=== PATIENT | male | born 1995 | race African-American/Black ===

== ENCOUNTER 2018-10-18 07:47 | Emergency (ER) | payer OTHER ==
[~2018-10-18] VITALS: Wt 63.0 kg
[2018-10-18 07:49] VITALS: BP 108/65; PULSE 61; RESP 20
[2018-10-18] MEDS ORDERED: ONDANSETRON (ODT) 4 MG TAB ODT STA (08:21)
[2018-10-18] MEDS ORDERED: HYDROCODONE/APAP (5/325) TAB PO ONE (08:30)
[2018-10-18] MEDS ORDERED: DEXAMETHASONE 10 MG/ML 1 ML INJ IM ONE (08:30)
[2018-10-18] MEDS ORDERED: NAPR-985 PO (08:52)
[2018-10-18] MEDS ORDERED: HYDR-4011 PO (08:52)
[2018-10-18] MEDS ORDERED: MED4DP PO (08:52)
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
== END 2018-10-18 09:25 | disposition home or self-care (01) ==
LOC: FTE 07:47
DX: M79.602 Pain in left arm (principal); Z87.891 Personal history of nicotine dependence
CPT/HCPCS: 73080; 96372; 99284; J1100